=== PATIENT | male | born 1960 | race Caucasian/White ===

== ENCOUNTER 2021-06-06 18:34 | Emergency (ER) | payer OTHER, SELFPAY ==
[2021-06-06 18:35] VITALS: BP 139/93; PULSE 86; RESP 20; TEMP 36.4; O2SAT 100
[2021-06-06] MEDS: KETOROLAC (*BKC) 60 MG/2 ML VIAL IM (19:08)
--- NOTE | 2021-06-06 19:10 | ED.EXTPRO ---
HPI - Extremity Problem General Chief complaint: Extremity Problem,Nontraumatic Stated complaint: AMB Source: patient and EMS Mode of arrival: EMS Limitations: no limitations History of Present Illness HPI Narrative: This is a 60-year-old gentleman that presents after he called EMS with some lower extremity swelling and tingling in his fingers bilaterally, the tingling has been off and on for months has a history of carpal tunnel syndrome and carpal tunnel repair has not seen a doctor in nearly 10 years currently not on any medication has been kicked out of his house by his mother and currently lives in a camper. The patient otherwise is comfortable, has some some anxiety with no chest pain no shortness of breath has some radial pulses bilaterally in his wrist are brisk and normal lower extremities there is currently no no edema no swelling no redness no erythema. MD Complaint: extremity pain and extremity swelling Onset (ago): week(s) Pain Consistency: intermittent Location: lower extremity Related Data Allergies Allergy/AdvReac Type Severity Reaction Status Date / Time No Known Allergies Allergy Verified 06/06/21 19:02 Review of Systems Review of Systems: All systems reviewed & are unremarkable except as noted in HPI and below PMFSH Past Medical History Medical History Anxiety Exam Const: General: no acute distress Orientation/consciousness: patient oriented x3 HENMT: Head: normal to inspection Eyes: Conjunctivae: conjunctivae normal Pupils: Equal, round and reactive pupils present EOM: EOMs intact bilaterally Direct Ophthalmoscopy: no photophobia Neck: Neck: normal visual inspection Chest: Chest palpation & inspection: normal inspection of the chest Resp: Effort & Inspection: normal respiratory effort Cardio: Rate: regular rate Rhythm: regular rhythm GI: GI Palp: Yes Soft to palpation Percussion: Yes normal to percussion Urinary Catheter: Urinary Catheter: patent and draining Back/Spine/Pelvis: Back: no CVA tenderness Neuro: General: patient oriented x3 and moves all extremities Extrem: General: normal to inspection Psych: Mental Status: mental status grossly normal Attitude: cooperative Course Course Emergency Course: patient received Toradol IM and advised follow-up with primary care physician. Vital Signs Vital signs: Vital Signs Temperature 36.4 C 06/06/21 18:35 Pulse Rate 86 06/06/21 18:35 Respiratory Rate 20 12/02/21 18:35 Blood Pressure 139/93 H 06/06/21 18:35 Pulse Oximetry 100 06/06/21 18:35 Temperature 36.4 C 06/06/21 18:35 Pulse Rate 86 06/06/21 18:35 Respiratory Rate 20 06/06/21 18:35 Blood Pressure 139/93 H 06/06/21 18:35 Pulse Oximetry 100 06/06/21 18:35 Discharge Plan Discharge Clinical Impression: Anxiety, Bilateral lower extremity edema Patient Disposition: Home, Self-Care Condition: Stable Instructions: Antibiotic Form, Anxiety (ED), Edema (ED) Additional Instructions: follow-up with primary care for provider within 1 to 2 weeks for further evaluation treatment. Prescriptions: New alprazolam [Xanax] 0.5 mg tablet 0.5 mg PO BID PRN (Reason: anxiety) Qty: 20 RF: 0 furosemide [Lasix] 20 mg tablet 20 mg PO DAILY Qty: 7 RF: 0 Follow-up/Referrals: UNKNOWN,DOCTOR [Primary Care Provider] - Time of Disposition: 19:16
[2021-06-06 19:15] VITALS: BP 139/87; PULSE 83; RESP 20; TEMP 36.4; O2SAT 100
== END 2021-06-06 19:25 | disposition home or self-care (01) ==
PROVIDERS: Emergency Provider Emergency Medicine
DX: F41.9 Anxiety disorder, unspecified (principal); R60.0 Localized edema
CPT/HCPCS: 96372; 99283; J1885

== ENCOUNTER 2022-03-09 15:49 | Observation (INO) | payer OTHER, SELFPAY ==
--- NOTE | ~2022-03-09 | CT_ITS ---
EXAMINATION: CT chest abdomen pelvis w con DATE: 03/09/2022 18:01 INDICATION: A fall on a firewood, bruised abdomen and chest . TECHNIQUE: Computed tomography (CT) of the chest, abdomen, and pelvis was performed with 100 mL Omnip aque-350 intravenous contrast. Automated exposure control and iterative reconstruction technique were employed. The dose-length product was 841.02 mGy-cm. COMPARISON: None FINDINGS: CHEST: No thoracic aortic injury. No mediastinal hematoma. No pericardial effusion. Coronary calcifications. No acute lung injury. Peribronchial vascular groundglass and linear opacities in the right posterior upper lobe and right posterior lower lobe likely infectious/inflammatory. No pleural effusion or pneumothorax. ABDOMEN/PELVIS: No solid organ injury. Subcentimeter right liver lobe hypodensity, too small to characterize. No evidence of bowel or mesenteric injury. No free fluid or free air. No retroperitoneal hematoma. Pelvic contents are atraumatic. MUSCULOSKELETAL: No acute fracture. Multiple old bilateral rib fractures. No fracture or traumatic malalignment of the thoracic or lumbar spine. IMPRESSION: No acute process detected in the chest, abdomen, or pelvis. Reviewed, dictated and finalized at location K.
--- NOTE | ~2022-03-09 | XR_ITS ---
EXAMINATION: XR chest 2V Exam Date/Time: 03/09/2022 16:35 CDT HISTORY: INT CP X 2WKS, LEG SWELLING BILATERALLY, NO CARDIAC HX Comparison: None available. RESULT: Lines, tubes, and devices: None. Lungs and pleura: Clear. Cardiomediastinal silhouette: Unremarkable. Other: No acute osseous or upper abdominal finding. IMPRESSION: No acute cardiopulmonary process. Reviewed, dictated and finalized at location K.
[2022-03-09 15:58] VITALS: BP 158/87; PULSE 96; RESP 14; TEMP 36.4; O2SAT 100
[2022-03-09 16:00] VITALS: O2SAT 95
--- NOTE | 2022-03-09 16:05 | ECG_ITS ---
Measurements Intervals [place] Rate: 86 P: 82 LA: 175 QRS: -64 QRSD: 123 T: 0 QT: 370 QTc: 443 Interpretive Statements SINUS RHYTHM LEFT AXIS DEVIATION RIGHT BUNDLE BRANCH BLOCK CONSIDER INFERIOR INFARCT, AGE INDETERMINATE ABNORMAL ECG BASELINE ARTIFACT- I, II, AVR, AVL NO PREVIOUS ECG AVAILABLE FOR COMPARISON Electronically Signed On 03-10-2022 8:25:08 CDT by Sammy Serrano D.O.
[2022-03-09 16:17] LABS: Basophils Percent Auto 0.3 % (0.2-1.2); Eosinophils Absolute Auto 0.1 K/mm3 (0-0.3); Eosinophils Percent Auto 0.9 % (0-4.4); Hematocrit 39.4 % (42.0-52.0); Hemoglobin 13.8 g/dL (14.0-18.0); Immature Granulocyte Absolute 0.02 K/mm3 (0.00-0.031); Immature Granulocyte Percent A 0.3 % (0-0.5); Lymphocytes Absolute Auto 2.19 K/mm3 (0.9-3.2); Lymphocytes Percent Auto 33.4 % (18.3-44.2); Mean Corpuscular Hemoglobin 33.7 pg (26-34); Mean Corpuscular Volume 96.1 fl (80-100); Mean Platelet Volume 9.3 fl (7.4-10.4); Monocytes Absolute Auto 0.5 K/mm3 (0.1-0.6); Monocytes Percent Auto 7.6 % (2.6-8.5); Neutrophils Absolute Auto 3.8 K/mm3 (1.3-6.7); Neutrophils Percent Auto 57.5 % (45.5-73.1); Platelet Count Result 166 k/mm3 (150-375); Red Cell Distribution Width 13.2 % (11.5-14.5); White Blood Count 6.6 K/mm3 (4.5-10.0)
[2022-03-09 16:27] LABS: INR 1.1
[2022-03-09 16:28] LABS: Alanine Aminotransferase 35 U/L (6-50); Albumin Level 3.9 g/dL (3.5-5.1); Alkaline Phosphatase 53 U/L (38-126); Anion Gap 11 mmol/L (8-16); Aspartate Amino Transferase 61 U/L (17-59); Bilirubin,Total 0.8 mg/dL (0.2-1.3); Blood Urea Nitrogen 5 mg/dL (9-20); Calcium 8.1 mg/dL (8.4-10.2); Carbon Dioxide 22 mmol/L (22-30); Chloride 93 mmol/L (98-107); Estimated CRCL calculation 103 ml/min; Estimated Glomerular Filt Rate > 60; Glucose 110 mg/dL (65-110); Partial Thromboplastin Time 25.9 SECONDS (22.3-36.8); Potassium 3.7 mmol/L (3.4-5.0); Sodium 126 mmol/L (137-145)
--- NOTE | 2022-03-09 16:39 | ED.CHESTPAIN ---
HPI - Chest Pain General Chief Complaint: Chest Pain Stated Complaint: multiple compliants Time Seen by Provider: 03/09/22 16:04 Source: patient, EMS and RN notes reviewed Mode of arrival: EMS Limitations: no limitations History of Present Illness HPI narrative: 61 years old white male, homeless, came to the ED by ambulance complaining of swelling of the lower extremity in the last few weeks, also chest pain mainly on the left side for weeks, gets worse with physical activity like lifting, bending and better at rest. Had a fall on a fire wood log 2 weeks ago causing bruises at the left lateral side of the abdomen and the chest bilaterally, patient did not go to the doctor for that. Last time was seen by Dr. Shannon June 2021 for lower extremity edema and had a diagnosis of anxiety and lower extremity edema and was discharged on Xanax and Lasix. Patient denied having any medication at that time or recently. Patient does not smoke, drinks alcohol daily, lives in his truck. Patient is not vaccinated for COVID-19 because he does not believe in it. Related Data Allergies Allergy/AdvReac Type Severity Reaction Status Date / Time No Known Allergies Allergy Verified 06/06/21 19:02 Review of Systems Review of Systems: All systems reviewed & are unremarkable except as noted in HPI and below PMFSH Past Medical History Medical History Anxiety Exam Narrative: General appearance: Well-developed, well-nourished Skin: Ecchymosis left side of abdomen and chest bilaterally mainly on the left side. Head: Normocephalic, nontraumatic Eyes: Clear conjunctiva ENT: Oropharynx normal, ears normal, nose normal Neck: Supple, nontender Chest and respiratory: Airway patent, no respiratory distress, no accessory muscle use Heart: Regular rate/rhythm Abdomen: Soft, nontender, no organomegaly, quiet bowel sounds, left abdominal tenderness and bruises Vascular: Normal peripheral pulses, normal capillary refill. Musculoskeletal: 3+ edema lower extremity bilaterally up to the knees Neurologic: Alert and oriented ?3, SPECK DYER is normal as tested, no gross motor deficit Course Course Emergency Course: Patient drinks alcohol daily, hyponatremia high likely secondary to overhydration Vital Signs Vital signs: Vital Signs Temperature 36.4 C 03/09/22 15:58 Pulse Rate 96 03/09/22 15:58 Respiratory Rate 14 03/09/22 15:58 Blood Pressure 158/87 H 03/09/22 15:58 Pulse Oximetry 100 03/09/22 15:58 Oxygen Delivery Room Air 03/09/22 15:58 Temperature 36.4 C 03/09/22 15:58 Pulse Rate 80 03/09/22 17:33 Respiratory Rate 13 03/09/22 17:33 Blood Pressure 155/91 H 03/09/22 18:48 Pulse Oximetry 99 03/09/22 17:33 Oxygen Delivery Room Air 03/09/22 16:00 MDM - Chest Pain Lab Data Result diagrams: 03/09/22 16:11 03/09/22 16:11 Labs: Lab Results 03/09/22 03/09/22 03/09/22 Range/Units 16:11 16:11 16:11 WBC 6.6 (4.5-10.0) K/mm3 RBC 4.10 L (4.6-6.20) M/mm3 Hgb 13.8 L (14.0-18.0) g/dL Hct 39.4 L (42.0-52.0) % MCV 96.1 (80-100) fl MCH 33.7 (26-34) pg MCHC 35.0 (32-36) g/dl RDW 13.2 (11.5-14.5) % Plt Count 166 (150-375) k/mm3 MPV 9.3 (7.4-10.4) fl Immature Gran % (Auto) 0.3 (0-0.5) % Neut % (Auto) 57.5 (45.5-73.1) % Lymph % (Auto) 33.4 (18.3-44.2) % Garden % (Auto) 7.6 (2.6-8.5) % Eos % (Auto) 0.9 (0-4.4) % Baso % (Auto) 0.3 (0.2-1.2) % Lymph # (Auto) 2.19 (0.9-3.2) K/mm3 Garden # (Auto) 0.5 (0.1-0.6) K/mm3 Eos # (Auto) 0.1 (0-0.3) K/mm3 Baso # (Auto) 0.0 (0.0-0.1
[2022-03-09 16:40] LABS: NT Pro B Type Natriuretic Pept 127 pg/mL (5-100); Troponin I < 0.012 ng/mL (0.000-0.034)
[2022-03-09 17:15] LABS: Ethanol 210 mg/dL (<10)
[2022-03-09 17:33] VITALS: BP 157/86; PULSE 80; RESP 13; O2SAT 99
[2022-03-09 17:55] LABS: Appearance Urine Clear (Clear); Bilirubin Urine Negative (Negative); Blood Urine Negative (Negative); Color Urine Yellow (Yellow); Glucose Urine UA Negative (Negative); Ketones Urine Negative (Negative); Leukocyte Esterase Ur Negative LEU/UL (Negative); Nitrate Urine Negative (Negative); Protein Urine Negative (Negative); Specific Grav Ur <= 1.005 (1.001-1.035); Urobilinogen Urine 0.2 mg/dL (<2.0)
[2022-03-09 18:48] VITALS: BP 155/91
[2022-03-09 18:54] LABS: Add Urine Microscopic? NO
[2022-03-09 19:32] LABS: Troponin I 0.017 ng/mL (0.000-0.034)
--- NOTE | 2022-03-09 20:32 | PC.NURSE ---
This RN tried to call report for this patient no one from floor answered
[2022-03-09] MEDS: FUROSEMIDE INJ 40 MG/4 ML VIAL IV PUSH (20:41)
[2022-03-09 21:01] VITALS: BP 150/79; PULSE 98; RESP 18; O2SAT 98
[2022-03-09 21:02] VITALS: BP 152/82; PULSE 94; RESP 20; TEMP 36.7; O2SAT 98
[2022-03-09 21:03] VITALS: BMI 25.1
--- NOTE | 2022-03-09 21:24 | ADMGEN ---
This patient, Mo Crespo, was admitted to Medical Room 343-01. Patient/family oriented to hospital policies and general routines including ID bracelet, bed and alarms, visiting hours, pain management, procedures, bathroom and other care routines, personal items, smoking policy, room service/diet, and visiting hours. Information on how to activate the Rapid Response Team has been discussed. Patient/Family are encouraged to report perceived risks to care and to ask questions if they do not understand what they are told or what they should do.
[2022-03-09] MEDS: THIAMINE 500 MG/NS 100 ML 500 MG/100 ML BAG 200 MG IVPB (21:35)
--- NOTE | 2022-03-09 23:46 | PM.IMHP ---
H&P: HPI History of Present Illness Date/Time: 03/09/22 23:46 Chief Complaint: Worsening leg swelling Narrative: 61-year-old man with a past medical history of chronic alcoholism who presented in the hospital via EMS from his mother's house due to evaluation of worsening leg swelling and chest pain after fall. The patient reports that he is homeless and is living in his truck. He went to his mom's house today for visit and was complaining to her of some lower extremity swelling. He eventually decided to call EMS to bring him into the ER for evaluation. He reports that he sleeps sitting up in his truck with his legs tingling all the time. He reports that over the last 3 weeks he has had increasing lower extremity with his legs becoming markedly more swollen today. He reports that his feet are so swollen that he cannot get his boots on his feet. He denies any associated shortness of breath. He denies any calf pain. He has been having some pain in his hip ever since he fell a couple of weeks ago while cutting firewood. He does have a large bruise to the left lateral iliac crest. He denies any flank pain, dysuria or hematuria. He reports that the pain is hip is more of a stiffness and will ease when he gets up and moves. He has been having some chest pain is but is sharp stabbing pain that lasts a few seconds and resolves. It is reproducible with palpation of the chest wall. He denies any associated shortness of breath, palpitations, orthopnea or paroxysmal nocturnal dyspnea. He did have problems with lower extremity edema last June for which he saw Dr. Breezy Shannon and was started on some Lasix. He did not continue taking Lasix. He has never had an echocardiogram and denies history of heart failure. He reports that he has not had anything to eat in the last couple of days since he is homeless. He denies any changes in his appetite. He denies any nausea or vomiting. He denies any difficulty swallowing, heartburn symptoms or hematochezia or melena. He drinks 6-12 beers a day. He only drinks about 3 bottles of water a day. He has been heavy drinkers since he was in his mid 20s. He denies any tobacco use or illicit substance use. Patient's mucous membranes are dry but nursing staff has offered the patient something eat and drink and he has refused. He reports that he is homeless because he has not worked in about a year. 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 Review of Systems Review of Systems: 12 systems were reviewed with pertinent positives and negatives per HPI. Except as documented in the HPI, all other systems were reviewed and are negative. [facility] Past Medical History Medical History (Updated 03/10/22 @ 01:52 by Brittani Joseph DO) Alcoholism Anxiety Surgical History Surgical History (Updated 03/10/22 @ 01:52 by Brittani Joseph DO) History of repair of right rotator cuff History of tonsillectomy and adenoidectomy Family History Family History (Updated 03/10/22 @ 01:55 by Brittani Joseph DO) Mother Diabetes mellitus Over 80 years old Kidney disease Father Over 80 years old Kidney disease Social History Social History (Updated 03/10/22 @ 01:56 by Brittani Joseph DO) Social History: Patient has been homeless for over a year and lives in his truck. 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 He felt he was too old to continue working. He states that he was also helping his parents but does not live with his mother. He has drank at least 6-12 beers a day since he was in his mid 20s. He denies any illicit substance use. He is and never had any children. Smoking status: Never smoker Drinks per week: 45 Substance use: never Substance use type: does not use Spiritual care concerns: No Meds Home
--- NOTE | 2022-03-10 | ECHO_ITS ---
Patient Info Name: Mo Crespo Age: 61 years : 1960 Gender: Male Ht: 72 in Wt: 185 lbs BSA: 2.07 m2 HR: 89 bpm BP: 166 / 93 mmHg Heart Rhythm: Sinus Rhythm Technical Quality: Fair Exam Date: 03/10/2022 8:33 AM Exam Location: [facility] Exam Room: 343 Patient Status: Outpatient Admit Date: 03/09/2022 Staff Ordering Physician: Brittani Joseph DO Environmental Programs Manager: Ana Mark RDCS Attending Provider: Darryl Salinas MD Referring Physician: Jake BOOTH; Exam Type: CA echo doppler color flow Study Info Indications - CLARICE ALCOHOLISM Complete two-dimensional, color flow and Doppler transthoracic echocardiogram is performed. Summary 1. Complete two-dimensional, color flow and Doppler transthoracic echocardiogram is performed. 2. Left ventricular chamber dimension is normal. 3. Left ventricular systolic function is normal, estimated at 55-60%. 4. Trivial amount of mitral regurgitation. 5. Mildly dilated left atrium. Left Ventricle Left ventricular chamber dimension is normal. Left ventricular systolic function is normal, estimated at 55-60%. The left ventricular diastolic function is normal. Left Atria Left atrial chamber dimension is mildly enlarged. Aortic Valve The aortic valve is normal. Pulmonic Valve The pulmonic valve is normal. Mitral Valve The mitral valve has normal leaflets. There is trace mitral valve regurgitation. Tricuspid Valve The tricuspid valve leaflets are normal. Pericardium/Pleural The pericardium appears normal. Aorta The aortic root size at the sinus of Valsalva is normal. Left Ventricular Outflow Tract Name Value Normal LVOT 2D LVOT Diameter 2.0 cm LVOT Doppler LVOT Peak Gradient 5 mmHg LVOT Mean Gradient 3 mmHg LVOT VTI 21 cm LVOT VTI/AV VTI Ratio 0.9 LVOT Stroke Volume 64 ml LVOT CO 14.5 l/min LVOT CI 7.0 l/min/m2 Pulmonic Valve Name Value Normal PV Doppler PV Peak Gradient 3 mmHg Mitral Valve Name Value Normal MV Doppler MV Decel Kimble 370 cm/s2 MV PHT 68 ms MV Area (PHT) 3.2 cm2 4.0-5.0 MV Diastolic Function MV E Peak Velocity 87 cm/s MV A Peak Velocity 47 cm/s MV E/
[2022-03-10 00:15] LABS: Glucose Point of Care 109 mg/dl (65-105)
[2022-03-10] MEDS: THIAMINE 500 MG/NS 100 ML 500 MG/100 ML BAG 200 MG IVPB ×3 (05:15→21:44)
[2022-03-10 05:17] LABS: Hematocrit 41.5 % (42.0-52.0); Hemoglobin 14.9 g/dL (14.0-18.0); Mean Corpuscular HGB Conc 35.9 g/dl (32-36); Mean Corpuscular Hemoglobin 33.6 pg (26-34); Mean Corpuscular Volume 93.7 fl (80-100); Mean Platelet Volume 9.3 fl (7.4-10.4); Platelet Count Result 165 k/mm3 (150-375); Red Blood Count 4.43 M/mm3 (4.6-6.20); Red Cell Distribution Width 13.1 % (11.5-14.5); White Blood Count 7.2 K/mm3 (4.5-10.0)
[2022-03-10 05:34] LABS: D Dimer 0.38 ug/mL (<0.48)
[2022-03-10 05:35] LABS: Anion Gap 6 mmol/L (8-16); Blood Urea Nitrogen 6 mg/dL (9-20); Calcium 8.7 mg/dL (8.4-10.2); Carbon Dioxide 26 mmol/L (22-30); Chloride 99 mmol/L (98-107); Estimated CRCL calculation 91 ml/min; Estimated Glomerular Filt Rate > 60; Glucose 108 mg/dL (65-110); Magnesium 1.9 mg/dL (1.6-2.3); Phosphorus 4.1 mg/dL (2.5-4.5); Sodium 131 mmol/L (137-145)
[2022-03-10 05:42] LABS: Troponin I 0.017 ng/mL (0.000-0.034)
[2022-03-10 05:48] VITALS: BP 165/93; PULSE 105; RESP 20; TEMP 36.4; O2SAT 98
[2022-03-10 06:37] LABS: Folic Acid 5.4 ng/mL (2.76->20)
[2022-03-10 06:43] LABS: Sodium Urine Random 69 meq/L
[2022-03-10 07:06] LABS: Free T4 Free Thyroxine Reflex 0.75 ng/dL (0.78-2.19)
[2022-03-10] MEDS: FOLIC ACID 1 MG TABLET PO (09:20)
[2022-03-10 09:27] VITALS: PULSE 105; RESP 20; O2SAT 98
[2022-03-10 09:39] VITALS: O2SAT 95
--- NOTE | 2022-03-10 11:19 | PM.IMPN ---
Progress Note: A&P Assessment and Plan (1) Bilateral lower extremity edema: Code(s): R60.0 - Localized edema Status: Acute Assessment and Plan: Most likely multifactorial due to dependent edema with patient sitting in his truck all time with his legs hanging complicated by his chronic alcoholism/low serum protein and some likely chronic venous insufficiency. Patient does not report any symptoms concerning for cardiac disease but will obtain echocardiogram to rule out component of possible cardiomyopathy although less likely given patient has a relatively normal BMP and lack of cardiac symptoms. D-dimer normal (2) Alcoholism: Code(s): F10.20 - Alcohol dependence, uncomplicated Status: Acute Assessment and Plan: Monitor for DT (3) Hyponatremia: Code(s): E87.1 - Hypo-osmolality and hyponatremia Status: Acute Assessment and Plan: Likely secondary to alcohol, monitor. Sodium level is improved (4) Musculoskeletal chest pain: Code(s): R07.89 - Other chest pain Status: Acute Assessment and Plan: Patient did have a change in tell to trope but chest pain does not seem to be cardiac in nature. Will repeat troponin level in a.m.. (5) Homeless single person: Code(s): Z59.00 - Homelessness unspecified Status: Acute Assessment and Plan: I suspect the patient will have took faculty with medical compliance due to his unstable living situation. Subjective Date/time seen: 03/10/22 11:19 No new complaints Exam Narrative: Weight 84 kg BMI 25.1 Const: Other: No acute distress, well-developed well-nourished, disheveled HENMT: Other: Mucous membranes are dry, poor dentition, head is normocephalic atraumatic Eyes: Other: no scleral icterus, no conjunctival pallor, extension of the blood vessels from the corner of the eye that cover the iris of the left eye at the 5 o'clock position, pupils are equal and reactive, extraocular movements intact Neck: Other: No anterior cervical or submandibular lymphadenopathy, supple Chest: Other: Reproducible tenderness to palpation over the left chest, equal chest expansion, no obvious bruising or sign of trauma Resp: Other: Clear to auscultation bilaterally, no increased work of breathing Cardio: Other: Regular rate, regular rhythm, 2+ bilateral radial pedal pulses GI: Other: Soft, nontender, nondistended, positive bowel sounds, at the mid axillary line above the is lateral left pubic crest Skin: Other: Darkly tanned, bruise on the left side as discussed above Neuro: Other: Alert orient x4, speech is clear, no facial asymmetry, no tremors, extraocular movements intact, no localizing neurologic deficits noted during the course of casual conversation Extrem: Other: Two to 3+ pitting edema of lower extremities up to just below the knee, strength is equal lower extremities and cribber strength is equal bilateral, no clubbing, no cyanosis Psych: Other: Cooperative, normal affect, judgment insight poor Objective Data Vital Signs Vital Signs: Vital Signs - 24 hr 03/09/22 15:58 03/09/22 16:00 03/09/22 17:33 Temperature 97.6 F Pulse Rate 96 80 Respiratory Rate 14 13 Blood Pressure 158/87 H 157/86 H Pulse Oximetry 100 95 99 Oxygen Delivery Room Air Room Air 03/09/22 18:48 03/09/22 21:01 03/09/22 21:02 Temperature 98.1 F Pulse Rate 98 94 Respiratory Rate 18 20 Blood Pressure 155/91 H 150/79 H 152/82 H Pulse Oximetry 98 98 Oxygen Delivery 03/10/22 05:48 03/10/22 09:27 03/10/22 09:39 Temperature 97.6 F Pulse Rate 105 H 105 H Respiratory Rate 20 20 Blood Pressure 165/93 H Pulse Oximetry 98 98 95 Oxygen Delivery Room Air Room Air Intake/Output Intake/Output: Intake & Output 03/07/22 03/08/22 03/09/22 03/10/22 23:59 23:59 23:59 23:59 Intake Total 100 220 Output Total 2150 Balance 100 -1930 Meds/Results Medications: Act
[2022-03-10 14:10] VITALS: BP 137/73; PULSE 77; RESP 12; TEMP 36.7; O2SAT 99
[2022-03-10 21:47] VITALS: BP 150/81; PULSE 70; RESP 16; TEMP 36.7; O2SAT 100
[2022-03-11 06:00] VITALS: BP 144/84; PULSE 75; RESP 16; TEMP 36.9; O2SAT 98
[2022-03-11] MEDS: FOLIC ACID 1 MG TABLET PO (09:18)
[2022-03-11] MEDS: FUROSEMIDE 40 MG TABLET PO (09:18)
--- NOTE | 2022-03-11 10:08 | PM.DS ---
DS: Admitting Diagnosis Discharge Date 03/11/2022 Admitting Diagnosis Worsening leg swelling DS: Discharge Diagnosis Discharge Diagnosis (1) Bilateral lower extremity edema: Code(s): R60.0 - Localized edema Status: Acute Assessment and Plan: Most likely multifactorial due to dependent edema with patient sitting in his truck all time with his legs hanging complicated by his chronic alcoholism/low serum protein and some likely chronic venous insufficiency. Patient does not report any symptoms concerning for cardiac disease but will obtain echocardiogram to rule out component of possible cardiomyopathy although less likely given patient has a relatively normal BMP and lack of cardiac symptoms. D-dimer normal (2) Alcoholism: Code(s): F10.20 - Alcohol dependence, uncomplicated Status: Acute Assessment and Plan: Monitor for DT (3) Hyponatremia: Code(s): E87.1 - Hypo-osmolality and hyponatremia Status: Acute Assessment and Plan: Likely secondary to alcohol, monitor. Sodium level is improved (4) Musculoskeletal chest pain: Code(s): R07.89 - Other chest pain Status: Acute Assessment and Plan: Patient did have a change in tell to trope but chest pain does not seem to be cardiac in nature. Will repeat troponin level in a.m.. (5) Homeless single person: Code(s): Z59.00 - Homelessness unspecified Status: Acute Assessment and Plan: I suspect the patient will have took faculty with medical compliance due to his unstable living situation. DS: Summary Hospital Course Reason for hospitalization: Chief Complaint: Worsening leg swelling Narrative: 61-year-old man with a past medical history of chronic alcoholism who presented in the hospital via EMS from his mother's house due to evaluation of worsening leg swelling and chest pain after fall.? The patient reports that he is homeless and is living in his truck.? He went to his mom's house today for visit and was complaining to her of some lower extremity swelling.? He eventually decided to call EMS to bring him into the ER for evaluation.? He reports that he sleeps sitting up in his truck with his legs tingling all the time.? He reports that over the last 3 weeks he has had increasing lower extremity with his legs becoming markedly more swollen today.? He reports that his feet are so swollen that he cannot get his boots on his feet.? He denies any associated shortness of breath.? He denies any calf pain.? He has been having some pain in his hip ever since he fell a couple of weeks ago while cutting firewood.? He does have a large bruise to the left lateral iliac crest.? He denies any flank pain, dysuria or hematuria.? He reports that the pain is hip is more of a stiffness and will ease when he gets up and moves.? He has been having some chest pain is but is sharp stabbing pain that lasts a few seconds and resolves.? It is reproducible with palpation of the chest wall.? He denies any associated shortness of breath, palpitations, orthopnea or paroxysmal nocturnal dyspnea.? He did have problems with lower extremity edema last June for which he saw Dr. Breezy Shannon and was started on some Lasix.? He did not continue taking Lasix.? He has never had an echocardiogram and denies history of heart failure.? He reports that he has not had anything to eat in the last couple of days since he is homeless.? He denies any changes in his appetite.? He denies any nausea or vomiting.? He denies any difficulty swallowing, heartburn symptoms or hematochezia or melena.? He drinks 6-12 beers a day.? He only drinks about 3 bottles of water a day.? He has been heavy drinkers since he was in his mid 20s.? He denies any tobacco use or illicit substance use.? Patient's mucous membranes are dry but nursing staff has offered the patient something eat and drink and he has refused. He reports that he is homeless because he has not worked i
[2022-03-13 08:46] LABS: Osmolality, Urine 240 mOsm/kg (50-1200)
== END 2022-03-11 13:15 | disposition home or self-care (01) ==
LOC: ANHED 19:37 → ANH3MED 03-10 02:34
PROVIDERS: Internal Medicine; Admitting Provider Internal Medicine; Emergency Provider Emergency Medicine; Visit Provider Family Medicine
DX: R60.0 Localized edema (principal); F10.20 Alcohol dependence, uncomplicated; Y90.7 Blood alcohol level of 200-239 mg/100 ml; E87.1 Hypo-osmolality and hyponatremia; R07.89 Other chest pain; Z59.02 Unsheltered homelessness; Z28.310 Unvaccinated for COVID-19; M25.559 Pain in unspecified hip; W19.XXXA Unspecified fall, initial encounter; F41.9 Anxiety disorder, unspecified; Z84.1 Family history of disorders of kidney and ureter; I51.7 Cardiomegaly; I45.10 Unspecified right bundle-branch block; I44.4 Left anterior fascicular block; R94.31 Abnormal electrocardiogram [ECG] [EKG]
CPT/HCPCS: 36415; 71046; 71260; 74177; 80048; 80053; 80307; 81003; 82570; 82607; 82746; 82948; 83735; 83880; 83930; 83935; 84100; 84300; 84439; 84443; 84484; 85025; 85027; 85380; 85610; 85730; 93005; 93306; 96365; 96375; 96376; 99285; A9270; G0378; G0379; J1940; J3411; Q9967

== ENCOUNTER 2022-03-26 02:18 | Emergency (ER) | payer OTHER, SELFPAY ==
[2022-03-26 02:26] VITALS: BP 146/70; PULSE 89; RESP 18; TEMP 36.3; O2SAT 100
[2022-03-26 03:06] LABS: Basophils Percent Auto 0.6 % (0.2-1.2); Eosinophils Absolute Auto 0.1 K/mm3 (0-0.3); Eosinophils Percent Auto 2.4 % (0-4.4); Hematocrit 40.4 % (42.0-52.0); Hemoglobin 14.3 g/dL (14.0-18.0); Immature Granulocyte Absolute 0.02 K/mm3 (0.00-0.031); Immature Granulocyte Percent A 0.4 % (0-0.5); Lymphocytes Absolute Auto 2.64 K/mm3 (0.9-3.2); Lymphocytes Percent Auto 49.1 % (18.3-44.2); Mean Corpuscular HGB Conc 35.4 g/dl (32-36); Mean Corpuscular Hemoglobin 33.3 pg (26-34); Mean Platelet Volume 8.9 fl (7.4-10.4); Monocytes Absolute Auto 0.4 K/mm3 (0.1-0.6); Monocytes Percent Auto 7.1 % (2.6-8.5); Neutrophils Absolute Auto 2.2 K/mm3 (1.3-6.7); Neutrophils Percent Auto 40.4 % (45.5-73.1); Platelet Count Result 185 k/mm3 (150-375); Red Cell Distribution Width 13.2 % (11.5-14.5); White Blood Count 5.4 K/mm3 (4.5-10.0)
--- NOTE | 2022-03-26 03:12 | ED.EXTPRO ---
HPI - Extremity Problem General Chief complaint: Extremity Problem,Nontraumatic Stated complaint: bilateral lower extremity swelling, unable to walk Time Seen by Provider: 03/26/22 02:30 Source: patient and RN notes reviewed Mode of arrival: wheelchair Limitations: no limitations History of Present Illness HPI Narrative: This is a 61 year old male with history of lymphedema, chronic alcohol abuse who presents for evaluation of bilateral leg swelling. Patient states he was admitted here 2 weeks ago for leg swelling. He reports his leg swelling has gotten worse and he is having pain with walking. He denies orthopnea, chest pain, cough, fever, chills or shortness of breath. He is homeless and he sleeps in in his truck with his feet hanging down. He states he was discharged on folic acid. On review of his last admission, he was found to have ECHO with normal EF with normal systolic and normal diastolic function. He was also found to have mild hyponatremia likely due to his alcohol use. He states he does not have a primary care provider. Related Data Allergies Allergy/AdvReac Type Severity Reaction Status Date / Time No Known Allergies Allergy Verified 03/26/22 02:31 Review of Systems Review of Systems: All systems reviewed & are unremarkable except as noted in HPI and below Constitutional: Constitutional: Denies chills, Denies fatigue and Denies fever(s) Cardiovascular: Cardiovascular: Denies chest pain, Denies rapid heart rate and Denies radiating jaw, neck or arm pain Respiratory: Respiratory: Denies chest congestion, Denies cough and Denies dyspnea Gastrointestinal: Gastrointestinal: Denies abdominal pain, Denies nausea and Denies vomiting [facility] Past Medical History Medical History (Updated 03/26/22 @ 04:27 by Dian Diaz MD) Alcoholism Anxiety Bilateral lower extremity edema Surgical History Surgical History History of repair of right rotator cuff History of tonsillectomy and adenoidectomy Family History Family History (Updated 03/10/22 @ 01:55 by Brittani Joseph DO) Mother Diabetes mellitus Over 80 years old Kidney disease Father Over 80 years old Kidney disease Social History Social History (Updated 03/10/22 @ 01:56 by Brittani Joseph DO) Social History: Patient has been homeless for over a year and lives in his truck. 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 He felt he was too old to continue working. He states that he was also helping his parents but does not live with his mother. He has drank at least 6-12 beers a day since he was in his mid 20s. He denies any illicit substance use. He is and never had any children. Smoking status: Never smoker Drinks per week: 45 Substance use: never Substance use type: does not use Spiritual care concerns: No Exam Const: General: no acute distress and alert Nutritional Appearance: well nourished Orientation/consciousness: patient oriented x3 HENMT: Head: normal to inspection Eyes: EOM: EOMs intact bilaterally Resp: Effort & Inspection: normal respiratory effort Auscultation: clear to auscultation bilaterally Cardio: Rate: regular rate Rhythm: regular rhythm Heart sounds: no murmurs Other: bilateral pedal pulse GI: GI Palp: Yes Soft to palpation, No Tenderness to palpation present (GI) and No Guarding due to palpation present (GI) Auscultation: normal bowel sounds Skin: General skin exam: normal color Rashes: no rashes Wounds: no wounds Neuro: General: patient oriented x3, moves all extremities and CN's II-XI intact bilaterally Extrem: General: edema bilateral Psych: Mental Status: mental status grossly normal Affect: normal affect Attitude: cooperative Course Reevaluation(s) Reevaluation #1: PAtient does not have CHF . BNP is normal. This is likey related to p
[2022-03-26 03:17] LABS: Alanine Aminotransferase 34 U/L (6-50); Albumin Level 4.3 g/dL (3.5-5.1); Alkaline Phosphatase 61 U/L (38-126); Anion Gap 18 mmol/L (8-16); Aspartate Amino Transferase 71 U/L (17-59); Blood Urea Nitrogen 4 mg/dL (9-20); Calcium 8.3 mg/dL (8.4-10.2); Carbon Dioxide 19 mmol/L (22-30); Chloride 89 mmol/L (98-107); Estimated CRCL calculation 119 ml/min; Estimated Glomerular Filt Rate > 60; Glucose 141 mg/dL (65-110); Magnesium 1.9 mg/dL (1.6-2.3); Potassium 3.6 mmol/L (3.4-5.0); Sodium 126 mmol/L (137-145)
[2022-03-26 03:25] LABS: NT Pro B Type Natriuretic Pept 103 pg/mL (5-100)
== END 2022-03-26 04:45 | disposition home or self-care (01) ==
PROVIDERS: Emergency Provider General Practice
DX: R60.0 Localized edema (principal); E87.1 Hypo-osmolality and hyponatremia; Z59.02 Unsheltered homelessness; F10.20 Alcohol dependence, uncomplicated
CPT/HCPCS: 36415; 80053; 83735; 83880; 85025; 99283

== ENCOUNTER 2023-03-16 09:50 | Inpatient (IN) | payer OTHER, SELFPAY ==
[2023-03-16] VITALS (49 sets, daily range): BP systolic 81–137; BP diastolic 58–121; PULSE 90–158; RESP 13–26; TEMP 36.1–36.7; O2SAT 92–100; BMI 28.3
--- NOTE | 2023-03-16 | ECHO_ITS ---
Patient Info Name: Mo Crespo Age: 62 years : 1960 Gender: Male Ht: 72 in Wt: 198 lbs BSA: 2.15 m2 HR: 127 bpm BP: 113 / 92 mmHg Technical Quality: Fair Exam Date: 03/16/2023 4:11 PM Exam Location: [facility] Exam Room: [facility] Patient Status: Outpatient Admit Date: 03/16/2023 Staff Ordering Physician: Sammy Serrano DO Burner Technician: Ana Mark RDCS Attending Provider: Dustin Kirk MD Referring Physician: Zach JOYNER; Exam Type: CA echo dop color flow w con Study Info Indications - pericardial effusion Complete two-dimensional, color flow and Doppler transthoracic echocardiogram is performed with contrast to opacify the left ventricle and to improve the deliniation of the left ventricle endocardial borders. Contrast/Agitated Saline Contrast/Ag. Saline: Definity Amount: 2.00 ml Administered By: Ana Mark [facility] Existing IV Access: Yes IV Access Condition: patent with no signs of infiltration Summary 1. Left ventricular chamber dimension is moderately enlarged. 2. Definity contrast administered improved wall motion interpretation. 3. Left ventricular systolic function is severely reduced, estimated at 20-25%. 4. The left ventricular diastolic function is abnormal. 5. E/e' 12 is mildly elevated. 6. Right ventricular chamber dimension is mildly enlarged. 7. Right ventricular systolic function is moderately reduced. 8. Left atrial chamber dimension is moderately enlarged. 9. Right atrial chamber dimension is mildly enlarged. 10. There is mild aortic valve sclerosis. 11. There is mild tricuspid valve regurgitation. 12. No pulmonary hypertension, estimated pulmonary arterial systolic pressure is 27 mmHg. 13. Dilated inferior vena cava with >50% collapse upon inspiration consistent with elevated right atrial pressure, 10 mmHg. 14. There is small circumferential pericardial effusion. 15. 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 Left Ventricle E/e' 12 is mildly elevated. Definity contrast administered improved wall motion interpretation. Left ventricular chamber dimension is moderately enlarged. Left ventricular systolic function is severely reduced, estimated at 20-25%. The left ventricular diastolic function is abnormal. Right Ventricle Right ventricular systolic function is moderately reduced. Right ventricular chamber dimension is mildly enlarged. Left Atria Left atrial chamber dimension is moderately enlarged. Right Atria Right atrial chamber dimension is mildly enlarged. Aortic Valve The aortic valve is trileaflet. There is mild aortic valve sclerosis. There is no aortic valve stenosis. There is no aortic valve regurgitation. Pulmonic Valve There is no pulmonic regurgitation. Mitral Valve There is no mitral valve stenosis. There is no mitral valve regurgitation. Tricuspid Valve There is mild tricuspid valve regurgitation. No pulmonary hypertension, estimated pulmonary arterial systolic pressure is 27 mmHg. Pericardium/Pleural No cardiac tamponade. 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 There is small circumferential pericardial effusion. Inferior Vena Cava Dilated inferior vena cava with >50% collapse upon inspiration consistent with elevated right atrial pressure, 10 mmHg. Aorta The aortic root size at the sinus of Valsalva is normal. Left Ventricular Outflow
--- NOTE | ~2023-03-16 | XR_ITS ---
Portable chest x-ray Comparison: 03/09/2022 Clinical History: Shortness of breath Findings: Possible minimal pleural effusions present. Lungs are otherwise clear. Cardiomediastinal s ilhouette is stable. Bones and soft tissues are unremarkable. Impression: Probable minimal bilateral pleural effusions. Reviewed, dictated and finalized at location . Impression: Probable minimal bilateral pleural effusions.
--- NOTE | ~2023-03-16 | CT_ITS ---
EXAMINATION: CTA chest PE protocol DATE: 03/16/2023 12:59 INDICATION: Shortness of breath. TECHNIQUE: Computed tomography angiography (CTA) of the chest was performed with 100 mL Omnipaque-350 intravenous contrast timed to evaluate the pulmonary arteries. Coronal maximum intensity projection 3D-reconstructions were created by the technologist. Automated exposure control and iterative reconst ruction technique were employed. The dose-length product was 434.52 mGy-cm. COMPARISON: Chest CT 03/09/2022 FINDINGS: There are small pleural effusions. There are patchy airspace and groundglass opacities in a picoposterior segments of right upper lobe. There is smooth septal thickening bilaterally. There are mild airspace opacities in left lower lobe. Cardiomegaly is noted. There is a moderate-sized pericard ial effusion. Pericardial calcifications are noted. There is no pulmonary embolus. There is mild medi astinal and right hilar lymphadenopathy. There is mild bilateral gynecomastia. There is a small volum e of perisplenic and perihepatic ascites. There is an old healed left rib fracture. There is mild tho racic spondylosis. IMPRESSION: 1. Moderate-sized pericardial effusion, new from 03/09/2022. Calcific pericarditis. 2. Mild pulmonary edema and small pleural effusions. 3. Airspace and groundglass opacities in right upper lobe and airspace opacities in left lower lobe, consistent with atelectasis/scarring versus pneumonia. 4. No pulmonary embolus. 5. Mild mediastinal and right hilar lymphadenopathy, likely reactive. 6. Small volume of ascites. Reviewed, dictated and finalized at location A. IMPRESSION: 1. Moderate-sized pericardial effusion, new from 03/09/2022. Calcific pericarditi s. 2. Mild pulmonary edema and small pleural effusions. 3. Airspace and groundglass opacities in right upper lobe and airspace opacitie s in left lower lobe, consistent with atelectasis/scarring versus pneumonia. 4. No pulmonary embolus. 5. Mild mediastinal and right hilar lymphadenopathy, likely reactive. 6. Small volume of ascites.
--- NOTE | 2023-03-16 10:33 | ECG_ITS ---
Measurements Intervals [place] Rate: 132 P: [place]: 0 QRS: -56 QRSD: 120 T: 10 QT: 316 QTc: 470 Interpretive Statements SUPRAVENTRICULAR TACHYCARDIA, CONSIDER ATRIAL TACHYCARDIA RIGHT BUNDLE BRANCH BLOCK INFERIOR INFARCT, AGE INDETERMINATE BASELINE ARTIFACT- I, AVR, AVL ABNORMAL ECG COMPARED TO ECG 03/09/2022 16:05:48 SUPRAVENTRICULAR TACHYCARDIA NOW PRESENT Electronically Signed On 03-16-2023 13:15:21 CDT by Sammy Serrano D.O.
[2023-03-16] MEDS: dilTIAZem HCl INJ 25 MG/5 ML VIAL 10 MG IV PUSH ×2 (10:54→11:04)
--- NOTE | 2023-03-16 11:00 | ED.GENADULT ---
HPI - General Adult General Chief complaint: Shortness of Breath/Dyspnea Stated complaint: shortness of breath Time Seen by Provider: 03/16/23 10:44 History of Present Illness HPI narrative: 62-year-old male with history of alcoholism presented the ED for evaluation of increased exertional shortness of breath over the last 3 weeks. Patient states nothing occurred to make him come in today but that he was just tired of the exertional shortness of breath. Patient denies any associated chest pain. Patient denies any prior history of PE or DVT. Patient states he typically drinks alcohol daily but patient states he has not had any beer since Thursday. Patient states he has no prior history of alcohol withdrawal seizures. Patient states he drinks approximately 15 beers a day. Related Data Home Medications Medication Instructions Recorded Confirmed No Home Medications 03/16/23 03/16/23 Allergies Allergy/AdvReac Type Severity Reaction Status Date / Time No Known Allergies Allergy Verified 03/26/22 02:31 Review of Systems Review of Systems: All systems reviewed & are unremarkable except as noted in HPI and below PMFSH Past Medical History Medical History (Updated 03/16/23 @ 13:31 by Liborio Ortiz MD) Alcoholism Anxiety Bilateral lower extremity edema Surgical History Surgical History History of repair of right rotator cuff History of tonsillectomy and adenoidectomy Family History Family History Mother Diabetes mellitus Over 80 years old Kidney disease Father Over 80 years old Kidney disease Social History Social History (Updated 03/10/22 @ 01:56 by Brittani Joseph DO) Social History: Patient has been homeless for over a year and lives in his truck. He states that he used to do [employer] work but quit working last year due to his age. He felt he was too old to continue working. He states that he was also helping his parents but does not live with his mother. He has drank at least 6-12 beers a day since he was in his mid 20s. He denies any illicit substance use. He is and never had any children. Smoking status: Never smoker Second hand tobacco smoke exposure: No Alcohol intake: current Drinks per week: 105 Substance use: never Substance use type: does not use Lack of Transportation: No Lack of Food: Never True Current Housing: I Have Housing Concerned About Future Housing: No Difficulty Paying Gas/Electric Bills: No Difficulty Paying for Meds: No Currently Unemployed: No Education: Decline to Answer Difficulty w/ Childcare or Family Care: No Spiritual care concerns: No Exam Narrative: APPEARANCE: Well appearing, no pain, no distress, well-nourished. HEAD: normocephalic, atraumatic. EYES: PERRLA/EOMI, conjunctivae clear. NOSE: Normal no drainage EARS:TMS clear with good light reflex. THROAT: Pharynx clear, no exudate. NECK: Supple. No adenopathy, no masses. RESPIRATORY: Airway patent, respirations nonlabored. Clear to auscultation bilaterally, no rales, rhonchi, wheezing. CARDIOVASCULAR: Tachycardia ABDOMINAL: Soft, nontender, nondistended, normal bowel sounds MUSCULOSKELETAL: Moves all extremities. Strength/ROM intact, No edema, No calf tenderness. NEURO: Alert. Cranial nerves II through XII intact. Grossly intact SKIN: Warm, dry. Normal Color Course Course Emergency Course: 62-year-old male presented the ED for evaluation of increased shortness of breath. Upon arrival to the ED patient was normotensive but had a heart rate into the 180s. Initial EKG showed A-fib a flutter with underlying right bundle. Patient does have a history of a right bundle. Patient's heart rate did begin to improve with Cardizem. Patient was also treated with IV fluids, 100 mg of IV thiamine. Patient was initially treated with C
[2023-03-16] MEDS: dilTIAZem 100 MG/100 ML 100 MG/100 ML BAG IV CONT (11:02)
[2023-03-16] MEDS: SODIUM CHLORIDE 0.9% IV 1,000 ML 999 ML (11:05)
--- NOTE | 2023-03-16 11:09 | ECG_ITS ---
Measurements Intervals [place] Rate: 133 P: [place]: 0 QRS: -45 QRSD: 129 T: 110 QT: 313 QTc: 467 Interpretive Statements ATRIAL FLUTTER/TACHYCARDIA WITH RAPID VENTRICULAR RESPONSE RIGHT BUNDLE BRANCH BLOCK LEFT ANTERIOR FASCICULAR BLOCK BASELINE WANDER- V4 ABNORMAL ECG COMPARED TO ECG 03/16/2023 10:43:13 ATRIAL FLUTTER NOW PRESENT LEFT ANTERIOR FASCICULAR BLOCK NOW PRESENT Electronically Signed On 03-16-2023 13:18:29 CDT by Sammy Serrano D.O.
[2023-03-16] MEDS: THIAMINE HCL 200 MG/2 ML VIAL 100 MG IV PUSH (11:14)
[2023-03-16] MEDS: MAGNESIUM SULF 1 GM/D5W 100 ML 1 GM/100 ML BAG IVPB (11:18)
[2023-03-16] MEDS: METOPROLOL TARTRATE INJ 5 MG/5 ML VIAL IV PUSH (11:29)
[2023-03-16 11:46] LABS: Basophils Percent Auto 0.2 % (0.2-1.2); Eosinophils Percent Auto 0.2 % (0-4.4); Immature Granulocyte Absolute 0.05 K/mm3 (0.00-0.031); Immature Granulocyte Percent A 0.6 % (0-0.5); Lymphocytes Absolute Auto 1.45 K/mm3 (0.9-3.2); Lymphocytes Percent Auto 16.8 % (18.3-44.2); Mean Corpuscular HGB Conc 32.7 g/dl (32-36); Mean Corpuscular Hemoglobin 32.3 pg (26-34); Mean Corpuscular Volume 98.8 fl (80-100); Mean Platelet Volume 10.5 fl (7.4-10.4); Monocytes Absolute Auto 0.8 K/mm3 (0.1-0.6); Monocytes Percent Auto 9.3 % (2.6-8.5); Neutrophils Absolute Auto 6.3 K/mm3 (1.3-6.7); Neutrophils Percent Auto 72.9 % (45.5-73.1); Platelet Count Result 266 k/mm3 (150-375); Red Blood Count 4.96 M/mm3 (4.6-6.20); Red Cell Distribution Width 14.3 % (11.5-14.5); White Blood Count 8.6 K/mm3 (4.5-10.0)
[2023-03-16 11:56] LABS: Magnesium 2.3 mg/dL (1.6-2.3)
[2023-03-16] MEDS: SODIUM CHLORIDE 0.9% IV 1,000 ML 999 ML IV CONT (11:58)
[2023-03-16 12:12] LABS: INR 1.2; Partial Thromboplastin Time 28.2 SECONDS (22.3-36.8); Prothrombin Time 16.1 Seconds (11.1-14.7)
[2023-03-16 12:12] LABS: Lactic Acid Reflex 2.8 mmol/L (0.7-2.0)
[2023-03-16 12:15] LABS: Alanine Aminotransferase 40 U/L (6-50); Albumin Level 3.9 g/dL (3.5-5.1); Alkaline Phosphatase 87 U/L (38-126); Anion Gap 12 mmol/L (8-16); Aspartate Amino Transferase 61 U/L (17-59); Bilirubin,Total 1.2 mg/dL (0.2-1.3); Blood Urea Nitrogen 12 mg/dL (9-20); Calcium 8.9 mg/dL (8.4-10.2); Carbon Dioxide 18 mmol/L (22-30); Chloride 102 mmol/L (98-107); Estimated CRCL calculation 90 ml/min; Estimated Glomerular Filt Rate > 60; Glucose 104 mg/dL (65-110); Potassium 5.5 mmol/L (3.4-5.0); Sodium 132 mmol/L (137-145)
[2023-03-16 12:27] LABS: NT Pro B Type Natriuretic Pept 1490 pg/mL (19.9-100); Troponin I < 0.012 ng/mL (0.000-0.034)
[2023-03-16 12:40] LABS: D Dimer 3.79 ug/mL (<0.48)
[2023-03-16] MEDS: SODIUM ZIRCONIUM CYCLOSILICATE 10 GM POWD.PACK PO (12:47)
[2023-03-16] MEDS: METOPROLOL TARTRATE 25 MG TABLET PO ×2 (14:06→17:39)
[2023-03-16 14:15] LABS: Anion Gap 13 mmol/L (8-16); Blood Urea Nitrogen 12 mg/dL (9-20); Carbon Dioxide 17 mmol/L (22-30); Chloride 101 mmol/L (98-107); Estimated CRCL calculation 81 ml/min; Estimated Glomerular Filt Rate > 60; Glucose 113 mg/dL (65-110); Potassium 5.4 mmol/L (3.4-5.0); Sodium 131 mmol/L (137-145)
--- NOTE | 2023-03-16 14:28 | PC.NURSE ---
Called lab, able to add on ETOH to pt.
[2023-03-16 14:41] LABS: Ethanol < 10 mg/dL (<10)
--- NOTE | 2023-03-16 14:41 | ADMGEN ---
This patient, Mo Crespo, was admitted to IMU Room 205-01. Patient/family oriented to hospital policies and general routines including ID bracelet, bed and alarms, visiting hours, pain management, procedures, bathroom and other care routines, personal items, smoking policy, room service/diet, and visiting hours. Information on how to activate the Rapid Response Team has been discussed. Patient/Family are encouraged to report perceived risks to care and to ask questions if they do not understand what they are told or what they should do.
[2023-03-16 14:59] LABS: Reflex Lactic Acid Yes or No Add Lactic
[2023-03-16] MEDS: ASPIRIN 81 MG CHEWABLE TABLET PO (15:02)
[2023-03-16 15:31] LABS: Total Triiodothyronine (T3) 0.85 NG/ML (0.97-1.69)
[2023-03-16] MEDS: PERFLUTREN LIPID MICROSPHERES 1.5 ML VIAL DILUTED TO 10 ML TOTAL VOLUME IV PUSH (16:50)
--- NOTE | 2023-03-16 16:59 | IVDEFINITY ---
Prior to administration of IV Definity the patient was educated on the risks and benefits of the imaging enhancing agent including potential adverse side effects. The patient verbalized understanding. Allergies were verified. No exclusion criteria were identified and at least one of the following inclusion criteria were met: 1) physician request, 2) patient technically difficult to image (per the [place] [employer] guidelines of two or more segments not discernable within the apical view), or 3) questionable left ventricular function. ?
--- NOTE | 2023-03-16 17:00 | PM.CNCAR ---
Assessment and Plan Assessment and plan (1) Atrial flutter: Code(s): I48.92 - Unspecified atrial flutter Status: Acute Assessment and Plan: Rapid HR currently. Probably due to alcoholism, possible RIKKI. His BP dropped in ER on Diltiazem drip so it was stopped. [id number] 0. On Metoprolol Tartate 25 mg every 6 hours and added Diltiazem 30 mg PO every 6 hours. Start Sotalol 80 mg every 12 hours first dose this evening. Increase aspirin 325 mg daily. Obtain echo. (2) Alcoholism: Code(s): F10.20 - Alcohol dependence, uncomplicated Status: Acute Assessment and Plan: Counseled regarding alcohol cessation. (3) Acute pericardial effusion: Code(s): I30.9 - Acute pericarditis, unspecified Status: Acute Assessment and Plan: Calcific pericardium on CT chest with moderate pericardial effusion and pleural effusion/pulm edema. Obtain echo. Start Furosemide 20 mg PO BID. History of Present Illness History of Present Illness Consult date/time: 03/16/23 17:00 Reason For Visit: Atrial Flutter/Pericardial Effusion/Hyperkalemia Narrative: 62 yr old man presents to ER with sob. Reports he has a history of alcoholism. Reports he has noticed YU that is progressively worsening over course of a few months. He got YU walking up 7 steps and could not mow his grass due to it, he decided to come in to ER. He drinks 6-15 beers for a few decades. His last drink was 4 days ago as she states he is not dependent on it, he just enjoys drinking it. Denies chest pain, orthopnea, PND, dizziness, palpitations. Review of Systems Review of Systems: All systems reviewed & are unremarkable except as noted in HPI and below Constitutional: Constitutional: Reports as per HPI, Denies chills, Reports fatigue and Denies fever(s) Cardiovascular: Cardiovascular: Reports as per HPI, Denies chest pain and Denies irregular heart rhythm Respiratory: Respiratory: Reports as per HPI and Reports dyspnea on exertion Gastrointestinal: Gastrointestinal: Reports as per HPI and Denies abdominal pain Genitourinary: Genitourinary: Reports as per HPI and Denies dysuria Musculoskeletal: Musculoskeletal: Reports as per HPI Neurologic: Reports as per HPI, Denies dizziness and Denies syncope [facility] Past Medical History Medical History (Updated 03/16/23 @ 13:31 by Liborio Ortiz MD) Alcoholism Anxiety Bilateral lower extremity edema Surgical History Surgical History History of repair of right rotator cuff History of tonsillectomy and adenoidectomy Family History Family History Mother Diabetes mellitus Over 80 years old Kidney disease Father Over 80 years old Kidney disease Social History Social History (Updated 03/10/22 @ 01:56 by Brittani Joseph DO) Social History: Patient has been homeless for over a year and lives in his truck. He states that he used to do [employer] work but quit working last year due to his age. He felt he was too old to continue working. He states that he was also helping his parents but does not live with his mother. He has drank at least 6-12 beers a day since he was in his mid 20s. He denies any illicit substance use. He is and never had any children. Smoking status: Never smoker Second hand tobacco smoke exposure: No Alcohol intake: current Drinks per week: 105 Substance use: never Substance use type: does not use Lack of Transportation: No Lack of Food: Never True Current Housing: I Have Housing Concerned About Future Housing: No Difficulty Paying Gas/Electric Bills: No Difficulty Paying for Meds: No Currently Unemployed: No Education: Decline to Answer Difficulty w/ Childcare or Family Care: No Spiritual care concerns: No Meds Home Medications and Allergies Home Medications Medica
[2023-03-16] MEDS: dilTIAZem HCL 30 MG TABLET PO (17:39)
[2023-03-16] MEDS: FUROSEMIDE 20 MG TABLET PO (17:39)
[2023-03-16 17:50] LABS: Lactic Acid 2.6 mmol/L (0.7-2.0)
[2023-03-16 20:00] LABS: Erythrocyte Sedimentation Rate 6 mm/hr (0-20)
[2023-03-16 20:41] LABS: CRP 4.6 mg/dL (<1.0)
[2023-03-16] MEDS: SOTALOL HCL 80 MG TABLET PO (21:25)
--- NOTE | 2023-03-16 23:26 | ECG_ITS ---
Measurements Intervals [place] Rate: 129 P: [place]: 0 QRS: -65 QRSD: 136 T: 87 QT: 348 QTc: 510 Interpretive Statements ATRIAL FLUTTER/TACHYCARDIA WITH RAPID VENTRICULAR RESPONSE RIGHT BUNDLE BRANCH BLOCK LEFT ANTERIOR FASCICULAR BLOCK ABNORMAL ECG COMPARED TO ECG 03/16/2023 11:16:33 NO SIGNIFICANT CHANGES Electronically Signed On 03-17-2023 6:45:53 CDT by Sammy Serrano D.O.
[2023-03-17] VITALS (16 sets, daily range): BP systolic 102–136; BP diastolic 78–100; PULSE 107–130; RESP 16–18; TEMP 36.1–36.7; O2SAT 94–100
--- NOTE | 2023-03-17 00:12 | PM.IMHP ---
H&P: HPI History of Present Illness Date/Time: 03/16/23 21:00 Chief Complaint: Shortness of breath. Narrative: This is a pleasant 62-year-old male with history of alcohol abuse who presented to the emergency department via private vehicle from home for evaluation of shortness of breath. The patient provides the following history. He is typically very active and is always on the go. The last 3 weeks however he has been getting short of breath with usual activities such as weed eating and mowing the lawn. He has also noticed swelling in his legs, fatigue, and mild orthopnea. Rarely he has a cough productive of clear phlegm. He denies fever, chills, sweats, headache, sinus congestion, sore throat, exertional chest pain, pleuritic pain, racing heart, nausea, vomiting, and calf pain. He was in atrial flutter on arrival to the ED with rates in the 150s however he was completely asymptomatic with that. He was given doses of IV metoprolol and diltiazem which initially dropped his blood pressure however that has rebounded nicely. His labs were significant for a D-dimer of 3.79, sodium 132, potassium 5.5, carbon dioxide 18, lactic acid 2.8, AST 61, proBNP 1490, TSH 4.190. Chest CTA was negative for pulmonary embolism and showed mild pulmonary edema and small pleural effusions as well as a moderate-sized pericardial effusion with calcific pericarditis. He is being admitted in this setting for further treatment and evaluation including Cardiology consultation. At the time my evaluation he is resting comfortably and does not have any significant complaints. He has no known history of cardiac dysrhythmia. He does not drink caffeine in excess. He drinks upwards of 15 beers a day but has not had any alcohol since Thursday due to feeling poorly and he has not had any symptoms of alcohol withdrawal. He denies illicit substance use. No known history of thyroid disease. No personal or family history of cardiac disease. Denies history of autoimmune disease. Of note he was hospitalized last March and had an echocardiogram done at that time for evaluation of lower extremity edema and that showed normal LV chamber dimension and function with an EF of 55 to 60%. Review of Systems Review of Systems: Twelve systems were reviewed and are negative except for as per HPI. [facility] Past Medical History Medical History Alcohol abuse Alcoholism Anxiety Bilateral lower extremity edema Surgical History Surgical History History of repair of right rotator cuff History of tonsillectomy and adenoidectomy Family History Family History Mother Diabetes mellitus Over 80 years old Kidney disease Father Over 80 years old Kidney disease Social History Social History Social History: Patient has been homeless for over a year and lives in his truck. He states that he used to do [employer] work but quit working last year due to his age. He felt he was too old to continue working. He states that he was also helping his parents but does not live with his mother. He has drank at least 6-12 beers a day since he was in his mid 20s. He denies any illicit substance use. He is and never had any children. Smoking status: Never smoker Second hand tobacco smoke exposure: No Alcohol intake: current Drinks per week: 105 Substance use: never Substance use type: does not use Lack of Transportation: No Lack of Food: Never True Current Housing: I Have Housing Concerned About Future Housing: No Difficulty Paying Gas/Electric Bills: No Difficulty Paying for Meds: No Currently Unemployed: No Education: Decline to Answer Difficulty w/ Childcare or Family Care: No Spiritual care concerns: No Meds Home Med
[2023-03-17] MEDS: dilTIAZem HCL 30 MG TABLET PO ×3 (02:15→12:49)
[2023-03-17] MEDS: METOPROLOL TARTRATE 25 MG TABLET PO ×4 (02:15→18:17)
[2023-03-17 04:59] LABS: Hematocrit 43.3 % (42.0-52.0); Hemoglobin 14.3 g/dL (14.0-18.0); Mean Corpuscular Hemoglobin 32.1 pg (26-34); Mean Corpuscular Volume 97.3 fl (80-100); Mean Platelet Volume 9.9 fl (7.4-10.4); Platelet Count Result 272 k/mm3 (150-375); Red Blood Count 4.45 M/mm3 (4.6-6.20); Red Cell Distribution Width 14.1 % (11.5-14.5); White Blood Count 8.2 K/mm3 (4.5-10.0)
[2023-03-17 05:09] LABS: Anion Gap 6 mmol/L (8-16); Blood Urea Nitrogen 13 mg/dL (9-20); Carbon Dioxide 23 mmol/L (22-30); Chloride 102 mmol/L (98-107); Estimated CRCL calculation 73 ml/min; Estimated Glomerular Filt Rate > 60; Glucose 106 mg/dL (65-110); Magnesium 2.3 mg/dL (1.6-2.3); Potassium 5.1 mmol/L (3.4-5.0); Sodium 131 mmol/L (137-145)
--- NOTE | 2023-03-17 06:34 | ECG_ITS ---
Measurements Intervals [place] Rate: 109 P: [place]: 0 QRS: -62 QRSD: 128 T: 23 QT: 366 QTc: 493 Interpretive Statements ATRIAL FLUTTER/TACHYCARDIA WITH RAPID VENTRICULAR RESPONSE RIGHT BUNDLE BRANCH BLOCK LEFT ANTERIOR FASCICULAR BLOCK BORDERLINE ECG COMPARED TO ECG 03/16/2023 23:33:59 HEART RATE HAS DECREASED Electronically Signed On 03-17-2023 9:39:26 CDT by Sammy Serrano D.O.
--- NOTE | 2023-03-17 08:03 | PM.PNCARD ---
Progress Note: A&P Assessment and Plan (1) Atrial flutter: Code(s): I48.92 - Unspecified atrial flutter Status: Acute Assessment and Plan: Rapid HR currently. Probably due to alcoholism, possible RIKKI. His BP dropped in ER on Diltiazem drip so it was stopped. [id number] 0. On Metoprolol Tartate 25 mg every 6 hours and added Diltiazem 30 mg PO every 6 hours. Started 03/16/23 evening Sotalol 80 mg every 12 hours to restore sinus rhythm. Increase aspirin 325 mg daily. (2) Alcoholism: Code(s): F10.20 - Alcohol dependence, uncomplicated Status: Acute Assessment and Plan: Counseled regarding alcohol cessation. (3) Acute pericardial effusion: Code(s): I30.9 - Acute pericarditis, unspecified Status: Acute Assessment and Plan: Calcific pericardium on CT chest with moderate pericardial effusion and pleural effusion/pulm edema. 03/16/23 Echo: EF 20-25%, mod LVE, diastolic dysfunction (E/e' 12), mild RVE, mod RV hypokinesis, mod LAE, mild RAMIN, mild TR, small pericardial effusion, pericardial calcifications with interventricular dependence, dilatate IVC suggest constrictive pericarditis. Gentle diureses Furosemide 20 mg PO BID for mild pulm edema and small pleural effusions with orthopnea without dropping his BP. 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 His echo last year on 03/10/22 was normal without constrictive pericarditis. With pericardial calcifications, atrial flutter, LV systolic dysfunction, will transfer patient for pericardiectomy. Discuss with patient and he would like to go main [facility]. Subjective Date/time seen: 03/17/23 08:03 Interval history: Reports orthopnea and unable to lie flat. Denies chest pain and no sob at rest. Exam Const: General: cooperative, healthy appearing, comfortable and overweight Nutritional Appearance: overweight Orientation/consciousness: oriented to person, oriented to place and oriented to time Resp: Auscultation: clear to auscultation bilaterally, no crackles, no rales, no rhonchi and no wheezes Cardio: Rate: tachycardic Rhythm: abnormal rhythm Heart sounds: no murmurs Peripheral pulses: dorsalis pedis present Neuro: General: oriented to person, oriented to place and oriented to time Extrem: Right lower extremity: no edema Left lower extremity: no edema Objective Data Vital Signs Vital Signs: Vital Signs - 24 hr 03/16/23 10:35 03/16/23 11:02 03/16/23 11:29 Temperature 98 F Pulse Rate 158 H 133 H 133 H Respiratory Rate 16 Blood Pressure 133/100 H 131/98 H Pulse Oximetry 100 Oxygen Delivery Room Air 03/16/23 11:32 03/16/23 11:59 03/16/23 11:51 Temperature Pulse Rate 133 H 106 H Respiratory Rate Blood Pressure 132/104 H Pulse Oximetry Oxygen Delivery Room Air 03/16/23 10:35 03/16/23 10:45 03/16/23 10:46 Temperature Pulse Rate 145 H 149 H 149 H Respiratory Rate 13 26 H 21 H Blood Pressure 137/121 H Pulse Oximetry Oxygen Delivery 03/16/23 11:07 03/16/23 11:15 03/16/23 11:16 Temperature Pulse Rate 134 H 134 H 133 H Respiratory Rate 21 H 19 18 Blood Pressure 122/94 H Pulse Oximetry 100 93 100 Oxygen Delivery 03/16/23 11:30 03/16/23 11:31 03/16/23 11:45 Temperature Pulse Rate 133 H 133 H 128 H Respiratory Rate 17 15 18 Blood Pressure 134/104 H Pulse Oximetry 99 Oxygen Delivery 03/16/23 11:46 03/16/23 11:50 03/16/23 11:52 Temperature Pulse Rate 129 H 102 H 90 Respiratory Rate 17 14 16 Blood Pressure 99/79 L 82/60 L 81/60 L Pulse Oximetry 99 100 100 Oxygen Delivery 03/16/23 11:54 03/16/23 12:00 03/16/23 12:01 Temperature Pulse Rate 101 H 124 H 124 H Respiratory Rate 23 H 16 16 Blood Pressure 82/58 L 92/76 L Pulse
--- NOTE | 2023-03-17 09:41 | PM.IMPN ---
Progress Note: A&P Assessment and Plan (1) Atrial flutter with rapid ventricular response: Code(s): I48.92 - Unspecified atrial flutter Status: Acute Assessment and Plan: Appreciate cardiology consultation Hypotensive with diltiazem drip, currently metoprolol tartrate 25 mg orally every 6 hours with diltiazem 30 mg orally every 6 hours 03/16: Sotalol 80 mg q.12, aspirin 325 mg daily (2) Congestive heart failure: Code(s): I50.9 - Heart failure, unspecified Status: Acute Assessment and Plan: Gentle diuresis with Lasix orally per Cardiology, monitor closely (3) Pericardial effusion: Code(s): I31.39 - Other pericardial effusion (noninflammatory) Status: Acute (4) Electrolyte abnormality: Code(s): E87.8 - Other disorders of electrolyte and fluid balance, not elsewhere classified Status: Acute (5) Alcohol abuse: Code(s): F10.10 - Alcohol abuse, uncomplicated Status: Acute Assessment and Plan: Alcohol cessation recommended (6) 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 His echo last year on 03/10/22 was normal without constrictive pericarditis. With pericardial calcifications, atrial flutter, LV systolic dysfunction, will transfer patient for pericardiectomy. Discuss with patient and he would like to go main [facility]. Plan DVT prophylaxis with SCDs GI prophylaxis not indicated Code status full code Subjective Date/time seen: 03/17/23 09:41 Interval history: 62-year-old male with history of alcohol abuse presenting with shortness of breath and found to be in atrial flutter with pericardial calcifications, cardiology is recommending transfer to [facility] for pericardiectomy, this is pending. No overnight events noted. No chest pain or shortness of breath. No nausea, vomiting or diarrhea. No fevers or chills. Review of Systems Review of Systems: 12 point review of systems was assessed and was negative except as noted in the HPI Exam Narrative: General: No acute distress, alert and oriented per baseline HEENT: Atraumatic, normocephalic, mucous membranes moist CV: Irregularly irregular, S1, S2 Lungs: Clear to auscultation bilaterally, no rales or crackles noted, no wheezes, good air entry Abdomen: Soft, nontender, nondistended Extremities: Normal to inspection Skin: No rashes noted, no lesions or wounds seen Psych: Euthymic, normal affect Objective Data Vital Signs Vital Signs: Vital Signs - 24 hr 03/16/23 10:35 03/16/23 11:02 03/16/23 11:29 Temperature 98 F Pulse Rate 158 H 133 H 133 H Respiratory Rate 16 Blood Pressure 133/100 H 131/98 H Pulse Oximetry 100 Oxygen Delivery Room Air 03/16/23 11:32 03/16/23 11:59 03/16/23 11:51 Temperature Pulse Rate 133 H 106 H Respiratory Rate Blood Pressure 132/104 H Pulse Oximetry Oxygen Delivery Room Air 03/16/23 10:35 03/16/23 10:45 03/16/23 10:46 Temperature Pulse Rate 145 H 149 H 149 H Respiratory Rate 13 26 H 21 H Blood Pressure 137/121 H Pulse Oximetry Oxygen Delivery 03/16/23 11:07 03/16/23 11:15 03/16/23 11:16 Temperature Pulse Rate 134 H 134 H 133 H Respiratory Rate 21 H 19 18 Blood Pressure 122/94 H Pulse Oximetry 100 93 100 Oxygen Delivery 03/16/23 11:30 03/16/23 11:31 03/16/23 11:45 Temperature Pulse Rate 133 H 133 H 128 H Respiratory Rate 17 15 18 Blood Pressure 134/104 H Pulse Oximetry 99 Oxygen Delivery 03/16/23 11:46 03/16/23 11:50 03/16/23 11:52 Temperature Pulse Rate 129 H 102 H 90 Respiratory Rate 17 14 16 Blood Pressure 99/79 L 82/60 L 81/60 L Pulse Oximetry 99 100 100 Oxygen Delivery 03/16/23 11:54 03/16/23 12:00 03/16/23 12:01 Tem
[2023-03-17] MEDS: FUROSEMIDE 20 MG TABLET PO ×2 (10:16→18:16)
[2023-03-17] MEDS: ASPIRIN 325 MG ENTERIC TABLET PO (10:16)
[2023-03-17] MEDS: SOTALOL HCL 80 MG TABLET PO ×2 (10:16→20:39)
--- NOTE | 2023-03-17 12:15 | ECG_ITS ---
Measurements Intervals Labelle Rate: 127 P: IA: 0 QRS: -52 QRSD: 142 T: 80 QT: 340 QTc: 494 Interpretive Statements ATRIAL FLUTTER/TACHYCARDIA WITH RAPID VENTRICULAR RESPONSE RIGHT BUNDLE BRANCH BLOCK LEFT ANTERIOR FASCICULAR BLOCK ABNORMAL ECG COMPARED TO ECG 03/17/2023 09:26:46 NO SIGNIFICANT CHANGES Electronically Signed On 03-17-2023 13:07:58 CDT by Sammy Serrano D.O.
[2023-03-17] MEDS: dilTIAZem HCL 60 MG TABLET PO (18:16)
[2023-03-17 19:46] LABS: Appearance Urine Clear (Clear); Bacteria Urine None Seen /hpf; Bilirubin Urine 1+ (Negative); Blood Urine Negative (Negative); Color Urine Dark Yellow (Yellow); Glucose Urine UA Negative (Negative); Hyaline Casts Urine Present /lpf; Ketones Urine Negative (Negative); Leukocyte Esterase Ur Trace LEU/UL (Negative); Nitrate Urine Negative (Negative); Protein Urine Negative (Negative); RBC Urine 0-2 /hpf (0-2); Specific Grav Ur 1.023 (1.001-1.035); Squamous Epithelial Cell Urine None seen /hpf (Few)
[2023-03-17 19:47] LABS: Add Urine Microscopic? YES
[2023-03-17 20:15] LABS: SARS-CoV-2 RNA PCR Negative (Negative)
--- NOTE | 2023-04-06 10:09 | PM.TDS ---
Transfer Discharge Sum: Prov Provider Date of admission: 03/17/23 16:12 Primary care physician: UNKNOWN,DOCTOR Admitting clinician: Dustin Kirk MD Consults: 03/16/23 Consult to Physician Routine Comment: Consulting Provider: Sammy Serrano Reason for consultation: Atrial flutter, pericardial effusion Has provider been notified: Yes DS: Admitting Diagnosis Discharge Date 03/17/23 Admitting Diagnosis Palpitations DS: Discharge Diagnosis Discharge Diagnosis (1) Atrial flutter with rapid ventricular response: Code(s): I48.92 - Unspecified atrial flutter Status: Acute (2) Congestive heart failure: Code(s): I50.9 - Heart failure, unspecified Status: Acute (3) Pericardial effusion: Code(s): I31.39 - Other pericardial effusion (noninflammatory) Status: Acute (4) Electrolyte abnormality: Code(s): E87.8 - Other disorders of electrolyte and fluid balance, not elsewhere classified Status: Acute (5) Alcohol abuse: Code(s): F10.10 - Alcohol abuse, uncomplicated Status: Acute Plan The patient presented to the emergency department for evaluation of dyspnea on exertion, orthopnea, and lower extremity edema as detailed in HPI. Labs, imaging, EKG, and all reports were personally reviewed. Workup is consistent with congestive heart failure exacerbation with CHF being a new diagnosis for the patient. Echocardiogram has been ordered (EF was normal on echocardiogram done last March). He will be judiciously diuresed with close monitoring of volume status, electrolytes, and renal function. Dr. Serrano has seen the patient he recommends starting sotalol and aspirin 325 mg daily. He has mild hyperkalemia which should improve with diuresis. Longstanding history of alcohol abuse though he has not had alcohol since Thursday and he denies signs or symptoms of alcohol withdrawal. Regarding the pericardial effusion, he is not having any chest pain and an echo is pending. No evidence of tamponade clinically at this time. Monitor labs and vital signs closely. Transfer Discharge Sum: Med Medications Active and Home Medications: Home Medications No Home Medications 03/16/23 [History Confirmed 03/16/23] Transfer Discharge Sum: Hosp Hospital Course Hospital course: 62-year-old male with history of alcohol abuse presenting with shortness of breath and found to be in atrial flutter with pericardial calcifications, cardiology is recommending transfer to [facility] for pericardiectomy, this is pending. Rapid HR currently. Probably due to alcoholism, possible RIKKI. His BP dropped in ER on Diltiazem drip so it was stopped. [id number] 0. On Metoprolol Tartate 25 mg every 6 hours and added Diltiazem 30 mg PO every 6 hours. Started 03/16/23 evening Sotalol 80 mg every 12 hours to restore sinus rhythm. Increase aspirin 325 mg daily. Calcific pericardium on CT chest with moderate pericardial effusion and pleural effusion/pulm edema. 03/16/23 Echo: EF 20-25%, mod LVE, diastolic dysfunction (E/e' 12), mild RVE, mod RV hypokinesis, mod LAE, mild RAMIN, mild TR, small pericardial effusion, pericardial calcifications with interventricular dependence, dilatate IVC suggest constrictive pericarditis. Gentle diureses Furosemide 20 mg PO BID for mild pulm edema and small pleural effusions with orthopnea without dropping his BP. He does relate a history of several months of chest tightness and progressive YU, but did not seek medical attention. His echo last year on 03/10/22 was normal without constrictive pericarditis. With pericardial calcifications, atrial flutter, LV systolic dysfunction, will transfer patient for pericardiectomy. Discuss with patient and he would like to go main [facility]. Please see above and med rec for details. Patient transferred in stable condition to [facility]. Time Spent with Patient Time attestation: Total time spent providing and/or coordinating transfer services:
== END 2023-03-17 22:18 | disposition short-term general hospital (02) | DRG 207 ==
LOC: ANHED 13:31 → ANHIMU 14:07
PROVIDERS: Physician Assistant; Student in an Organized Health Care Education/Training Program; Admitting Provider Internal Medicine; Emergency Provider Emergency Medicine; Visit Provider Internal Medicine Cardiovascular Disease
DX: I31.39 Other pericardial effusion (noninflammatory); I48.92 Unspecified atrial flutter; I50.9 Heart failure, unspecified; I31.1 Chronic constrictive pericarditis; E87.5 Hyperkalemia; F41.9 Anxiety disorder, unspecified; F10.20 Alcohol dependence, uncomplicated; G47.33 Obstructive sleep apnea (adult) (pediatric); Z20.822 Contact with and (suspected) exposure to COVID-19; Z28.21 Immunization not carried out because of patient refusal; Z59.02 Unsheltered homelessness
CPT/HCPCS: 36415; 71045; 71275; 80048; 80053; 80307; 81001; 83605; 83735; 83880; 84439; 84443; 84480; 84484; 85025; 85027; 85380; 85610; 85652; 85730; 86140; 87086; 87635; 93005; 96365; 96367; 96375; 99285; A9270; C8929; G0378; G0379; J3411; J3475; J7030; Q9957; Q9967